=== PATIENT | male | born 2000 | race Hispanic/Latino ===

== ENCOUNTER 2022-04-10 15:14 | Emergency (ER) | payer SELFPAY ==
[2022-04-10] MEDS ORDERED: Ketorolac Tromethamine 30 MG/ML VIAL ONE (16:29)
[2022-04-10] MEDS ORDERED: Dexamethasone 10 MG/ML VIAL ONE (16:29)
== END 2022-04-10 17:59 | disposition home or self-care (01) ==
LOC: ERS 15:14
DX: J02.9 Acute pharyngitis, unspecified (principal)
CPT/HCPCS: 87081; 87430; 96372; 99284; J1100; J1885